=== PATIENT | female | born 1960 | race Caucasian/White ===

== ENCOUNTER 2018-03-21 16:55 | Inpatient (IN) | payer MEDICARE, MEDICAID ==
[~2018-03-21] VITALS: Ht 157.5 cm; Wt 90.8 kg
[~2018-03-21 16:55] MED LIST: ESCI20TA PO; QUET300T2 PO
[2018-03-21 17:30] VITALS: BP 110/79
[2018-03-21] MEDS ORDERED: ZOLPIDEM TARTRATE 5 MG TABLET PO PRN (17:30)
[2018-03-21] MEDS ORDERED: QUEtiapine FUMARATE 100 MG TABLET PO PRN (17:30)
[2018-03-21] MEDS ORDERED: HydrOXYzine PAMOATE 25 MG CAPSULE PO PRN (17:30)
[2018-03-21] MEDS ORDERED: CLON.5 PO (18:07)
[2018-03-21 18:26] VITALS: BP 137/93
[2018-03-21] MEDS: ClonazePAM 0.5 MG TABLET PO SCH (18:37)
[2018-03-21] MEDS ORDERED: ONDANSETRON HCL 4 MG TABLET PO PRN (19:15)
[2018-03-21] MEDS ORDERED: ALBUTEROL SULFATE HFA 90 MCG/PUFF 8 GM INHALER IH PRN (19:15)
[2018-03-21] MEDS ORDERED: BENZOCAINE/MENTHOL LOZENGE MM PRN (19:15)
[2018-03-21] MEDS ORDERED: MAG HYDROX/AL HYDROX/SIMETH ES 30 ML SUSPENSION UDCUP PO PRN (19:15)
[2018-03-21] MEDS ORDERED: CloNIDine HCL 0.1 MG TABLET PO PRN (19:15)
[2018-03-21] MEDS ORDERED: PETROLATUM,WHITE 71 GM JELLY TP PRN (19:15)
[2018-03-21] MEDS ORDERED: ACETAMINOPHEN 325 MG TABLET PO PRN (19:15)
[2018-03-21] MEDS ORDERED: LOPERAMIDE HCL 2 MG CAPSULE PO PRN (19:15)
[2018-03-21] MEDS ORDERED: BACITRACIN 28.4 GM OINTMENT TP PRN (19:15)
[2018-03-21] MEDS ORDERED: MAGNESIUM HYDROXIDE SUSPENSION 30 ML UDCUP PO PRN (19:15)
[2018-03-21] MEDS: NICOTINE 21 MG/24 HOUR PATCH TD SCH (19:20)
[2018-03-21] MEDS: IBUPROFEN 600 MG TABLET PO PRN (19:48)
[2018-03-21] MEDS: QUEtiapine FUMARATE 300 MG TABLET PO SCH (20:29)
[2018-03-22 00:10] VITALS: BP 108/69
[2018-03-22 08:03] LABS: BASOPHILS % (AUTO) 0.5 % (0.0-2.0); EOSINOPHILS % (AUTO) 2.7 % (1.0-6.0); HEMATOCRIT 40.8 % (36-46); HEMOGLOBIN 14.7 g/dL (12.0-16.0); LYMPHOCYTES # (AUTO) 3.5 K/uL (1.0-4.8); LYMPHOCYTES % (AUTO) 44.9 % (22.0-44.0); MEAN CORPUSCULAR HEMOGLOBIN 32.2 pg (26.0-34.0); MEAN CORPUSCULAR VOLUME 90 fL (80-100); MONOCYTES # (AUTO) 0.5 K/uL (0.1-1.0); NEUTROPHILS # (AUTO) 3.5 K/uL (1.8-7.7); NEUTROPHILS % (AUTO) 44.9 % (40.0-70.0); PLATELET COUNT (AUTO) 234 K/uL (150-450); RED BLOOD CELL COUNT(AUTO) 4.56 MIL/uL (4.00-5.20); RED CELL DISTRIBUTION WIDTH 13.2 % (11.5-14.5)
[2018-03-22 08:09] VITALS: BP 113/77
[2018-03-22 08:30] LABS: HEMOGLOBIN A1C 5.8 % (4.5-6.2)
[2018-03-22] MEDS: DOCUSATE SODIUM 100 MG CAPSULE PO SCH (08:31)
[2018-03-22] MEDS: ClonazePAM 0.5 MG TABLET PO SCH ×2 (08:31→16:30)
[2018-03-22] MEDS: ESCITALOPRAM OXALATE 10 MG TABLET PO SCH (08:31)
[2018-03-22] MEDS: OMEPRAZOLE 20 MG CAPSULE PO SCH (08:31)
[2018-03-22] MEDS: NICOTINE 21 MG/24 HOUR PATCH TD SCH (08:31)
[2018-03-22] MEDS: IBUPROFEN 600 MG TABLET PO PRN (08:40)
[2018-03-22 08:44] LABS: AMPHET/METH SCREEN,URINE NEGATIVE (NEGATIVE); BARBITURATE SCREEN, URINE NEGATIVE (NEGATIVE); BENZODIAZEPINES SCREEN,URINE NEGATIVE (NEGATIVE); CANNABINOID SCREEN,URINE NEGATIVE (NEGATIVE); COCAINE SCREEN,URINE NEGATIVE (NEGATIVE); METHADONE SCREEN, URINE NEGATIVE (NEGATIVE); OPIATE SCREEN,URINE NEGATIVE (NEGATIVE)
[2018-03-22 08:48] LABS: APPEARANCE,URINE CLOUDY (CLEAR); BILIRUBIN,URINE NEGATIVE (NEGATIVE); GLUCOSE, URINE (UA) NEGATIVE (NEGATIVE); KETONES,URINE NEGATIVE (NEGATIVE); LEUKOCYTE ESTERASE ,URINE NEGATIVE (NEGATIVE); NITRATE,URINE NEGATIVE (NEGATIVE); OCCULT BLOOD,URINE NEGATIVE (NEGATIVE); PROTEIN,URINE NEGATIVE (NEGATIVE); UROBILINOGEN,URINE 0.2 mg/dL (<=1.0)
[2018-03-22 08:53] LABS: PHENCYCLIDINE SCREEN,URINE NEGATIVE (NEGATIVE)
[2018-03-22 08:57] LABS: ALANINE AMINOTRANSFERASE 39 U/L (12-78); ALBUMIN 3.2 g/dL (3.4-5.0); ALKALINE PHOSPHATASE 83 U/L (46-116); ANION GAP 6 mmol/L (8-16); ASPARTATE AMINOTRANSFERASE 22 U/L (15-37); BILIRUBIN,TOTAL 0.3 mg/dL (0.1-1.0); CALCIUM, TOTAL 8.5 mg/dL (8.8-10.5); CARBON DIOXIDE 30 mmol/L (22-29); CHLORIDE 108 mmol/L (98-107); CHOL/HDL RATIO 5.6 (3.9-5.7); CHOLESTEROL 208 mg/dL (131-200); CREATININE 0.69 mg/dL (0.60-1.30); FREE T4 (FREE THYROXINE) 0.58 ng/dL (0.76-1.46); GLOMERULAR FILTR. RATE CALC > 60 mL/min (>60); GLUCOSE,RANDOM 79 mg/dL (70-110); HDL CHOLESTEROL 37 mg/dL (40-60); LDL CHOL (CALC.) 124 mg/dL (0-130); POTASSIUM 4.6 mmol/L (3.5-5.1); SODIUM SERUM 144 mmol/L (136-145); THYROID STIMULATING HORMONE 1.93 uIU/mL (0.36-3.74); TOTAL PROTEIN, SERUM 6.1 g/dL (6.4-8.2); TRIGLYCERIDES 233 mg/dL (15-150); UREA NITROGEN, BLOOD 19 mg/dL (7-18)
[2018-03-22 16:07] VITALS: BP 113/76
[2018-03-22] MEDS: QUEtiapine FUMARATE 300 MG TABLET PO SCH (20:34)
[2018-03-23 00:01] VITALS: BP 103/60
[2018-03-23 08:15] VITALS: BP 118/74
[2018-03-23] MEDS: OMEGA-3/DHA/EPA/FISH OIL 1,000 MG CAPSULE PO SCH (08:53)
[2018-03-23] MEDS: DOCUSATE SODIUM 100 MG CAPSULE PO SCH (08:53)
[2018-03-23] MEDS: ClonazePAM 0.5 MG TABLET PO SCH ×2 (08:53→16:31)
[2018-03-23] MEDS: OMEPRAZOLE 20 MG CAPSULE PO SCH (08:53)
[2018-03-23] MEDS: ESCITALOPRAM OXALATE 10 MG TABLET PO SCH (08:53)
[2018-03-23] MEDS: NICOTINE 21 MG/24 HOUR PATCH TD SCH (08:54)
[2018-03-23] MEDS: IBUPROFEN 600 MG TABLET PO PRN (09:34)
[2018-03-23 16:11] VITALS: BP 116/66
[2018-03-23] MEDS: QUEtiapine FUMARATE 300 MG TABLET PO SCH (20:31)
[2018-03-23] MEDS ORDERED: QUEtiapine FUMARATE 100 MG TABLET PO ONE (20:45)
[2018-03-24 06:43] VITALS: BP 124/71
[2018-03-24] MEDS: OMEGA-3/DHA/EPA/FISH OIL 1,000 MG CAPSULE PO SCH (08:23)
[2018-03-24] MEDS: ClonazePAM 0.5 MG TABLET PO SCH ×2 (08:23→17:38)
[2018-03-24] MEDS: NICOTINE 21 MG/24 HOUR PATCH TD SCH (08:24)
[2018-03-24] MEDS: DOCUSATE SODIUM 100 MG CAPSULE PO SCH (08:24)
[2018-03-24] MEDS: ESCITALOPRAM OXALATE 10 MG TABLET PO SCH (08:24)
[2018-03-24] MEDS: OMEPRAZOLE 20 MG CAPSULE PO SCH (08:24)
[2018-03-24 08:28] VITALS: BP 112/62
[2018-03-24] MEDS: IBUPROFEN 600 MG TABLET PO PRN ×2 (09:45→17:43)
[2018-03-24 16:06] VITALS: BP 106/75
[2018-03-24 17:43] VITALS: BP 114/74
[2018-03-24] MEDS: QUEtiapine FUMARATE 200 MG TABLET PO SCH (20:06)
[2018-03-25 00:05] VITALS: BP 100/64
[2018-03-25] MEDS: OMEPRAZOLE 20 MG CAPSULE PO SCH (08:17)
[2018-03-25] MEDS: OMEGA-3/DHA/EPA/FISH OIL 1,000 MG CAPSULE PO SCH (08:17)
[2018-03-25] MEDS: DOCUSATE SODIUM 100 MG CAPSULE PO SCH (08:17)
[2018-03-25] MEDS: ESCITALOPRAM OXALATE 10 MG TABLET PO SCH (08:17)
[2018-03-25] MEDS: ClonazePAM 0.5 MG TABLET PO SCH ×2 (08:17→16:35)
[2018-03-25] MEDS: NICOTINE 21 MG/24 HOUR PATCH TD SCH (08:18)
[2018-03-25 08:23] VITALS: BP 115/69
[2018-03-25] MEDS: IBUPROFEN 600 MG TABLET PO PRN ×2 (08:23→16:35)
[2018-03-25 16:05] VITALS: BP_SYST 100; BP_SYST 110; BP_DIAS 67
[2018-03-25] MEDS: QUEtiapine FUMARATE 200 MG TABLET PO SCH (20:38)
[2018-03-26 05:15] VITALS: BP 109/71
[2018-03-26 08:20] VITALS: BP 115/60
[2018-03-26] MEDS: OMEGA-3/DHA/EPA/FISH OIL 1,000 MG CAPSULE PO SCH (08:29)
[2018-03-26] MEDS: OMEPRAZOLE 20 MG CAPSULE PO SCH (08:29)
[2018-03-26] MEDS: ClonazePAM 0.5 MG TABLET PO SCH ×2 (08:29→16:38)
[2018-03-26] MEDS: ESCITALOPRAM OXALATE 20 MG TABLET PO SCH (08:29)
[2018-03-26] MEDS: DOCUSATE SODIUM 100 MG CAPSULE PO SCH (08:29)
[2018-03-26] MEDS: NICOTINE 21 MG/24 HOUR PATCH TD SCH (08:30)
[2018-03-26 10:23] VITALS: BP 112/64
[2018-03-26] MEDS: IBUPROFEN 600 MG TABLET PO PRN ×2 (10:23→17:53)
[2018-03-26 16:08] VITALS: BP 110/64
[2018-03-26] MEDS: DICLOFENAC SODIUM 1% 100 GM GEL [2GM] TP PRN (17:53)
[2018-03-26 17:54] VITALS: BP 122/70
[2018-03-26] MEDS: QUEtiapine FUMARATE 200 MG TABLET PO SCH (20:32)
[2018-03-27 06:17] VITALS: BP 102/60
[2018-03-27] MEDS: DOCUSATE SODIUM 100 MG CAPSULE PO SCH (08:23)
[2018-03-27] MEDS: OMEPRAZOLE 20 MG CAPSULE PO SCH (08:23)
[2018-03-27] MEDS: ClonazePAM 0.5 MG TABLET PO SCH ×2 (08:23→16:38)
[2018-03-27] MEDS: ESCITALOPRAM OXALATE 20 MG TABLET PO SCH (08:23)
[2018-03-27] MEDS: NICOTINE 21 MG/24 HOUR PATCH TD SCH (08:23)
[2018-03-27] MEDS: OMEGA-3/DHA/EPA/FISH OIL 1,000 MG CAPSULE PO SCH (08:23)
[2018-03-27 08:25] VITALS: BP 118/87
[2018-03-27] MEDS: DICLOFENAC SODIUM 1% 100 GM GEL [2GM] TP PRN (13:54)
[2018-03-27 16:10] VITALS: BP 116/76
[2018-03-27] MEDS: QUEtiapine FUMARATE 200 MG TABLET PO SCH (20:38)
[2018-03-28 00:10] VITALS: BP 110/64
[2018-03-28] MEDS: OMEGA-3/DHA/EPA/FISH OIL 1,000 MG CAPSULE PO SCH (08:23)
[2018-03-28] MEDS: ESCITALOPRAM OXALATE 20 MG TABLET PO SCH (08:23)
[2018-03-28] MEDS: NICOTINE 21 MG/24 HOUR PATCH TD SCH (08:23)
[2018-03-28] MEDS: ClonazePAM 0.5 MG TABLET PO SCH ×2 (08:23→16:35)
[2018-03-28] MEDS: OMEPRAZOLE 20 MG CAPSULE PO SCH (08:23)
[2018-03-28] MEDS: CHOLECALCIFEROL (VIT D3) 1,000 UNITS TABLET PO SCH (08:23)
[2018-03-28] MEDS: DOCUSATE SODIUM 100 MG CAPSULE PO SCH (08:23)
[2018-03-28 08:29] VITALS: BP 126/80
[2018-03-28 10:02] VITALS: BP 122/78
[2018-03-28] MEDS: IBUPROFEN 600 MG TABLET PO PRN (10:02)
[2018-03-28 16:10] VITALS: BP 108/70
[2018-03-28] MEDS: QUEtiapine FUMARATE 200 MG TABLET PO SCH (20:35)
[2018-03-28] MEDS ORDERED: CHOL100062 PO (21:47)
[2018-03-29 01:02] VITALS: BP 116/60
[2018-03-29] MEDS ORDERED: QUET200T PO (05:15)
[2018-03-29] MEDS: NICOTINE 21 MG/24 HOUR PATCH TD SCH (08:03)
[2018-03-29] MEDS: CHOLECALCIFEROL (VIT D3) 1,000 UNITS TABLET PO SCH (08:03)
[2018-03-29] MEDS: DOCUSATE SODIUM 100 MG CAPSULE PO SCH (08:03)
[2018-03-29] MEDS: OMEGA-3/DHA/EPA/FISH OIL 1,000 MG CAPSULE PO SCH (08:03)
[2018-03-29] MEDS: ESCITALOPRAM OXALATE 20 MG TABLET PO SCH (08:03)
[2018-03-29] MEDS: ClonazePAM 0.5 MG TABLET PO SCH (08:03)
[2018-03-29] MEDS: OMEPRAZOLE 20 MG CAPSULE PO SCH (08:03)
[2018-03-29 08:08] VITALS: BP 120/81
[2018-03-29] MEDS: IBUPROFEN 600 MG TABLET PO PRN (08:08)
== END 2018-03-29 10:10 | disposition home or self-care (01) | DRG 885 ==
LOC: B2X 17:37
PROVIDERS: ADMIT Psychiatry & Neurology Psychiatry; ATTEND Psychiatry & Neurology Psychiatry
DX: F31.5 Bipolar disorder, current episode depressed, severe, with psychotic features (principal); R45.851 Suicidal ideations; E66.9 Obesity, unspecified; K21.9 Gastro-esophageal reflux disease without esophagitis; E78.5 Hyperlipidemia, unspecified; F41.9 Anxiety disorder, unspecified; G47.00 Insomnia, unspecified; E78.1 Pure hyperglyceridemia; F17.200 Nicotine dependence, unspecified, uncomplicated; K59.00 Constipation, unspecified; Z68.36 Body mass index [BMI] 36.0-36.9, adult; Z90.710 Acquired absence of both cervix and uterus; Z90.49 Acquired absence of other specified parts of digestive tract; Z56.0 Unemployment, unspecified; Z79.899 Other long term (current) drug therapy
CPT/HCPCS: 80307; 82306; 83036; 84439; 84443